=== PATIENT | female | born 1975 | race Caucasian/White ===

== ENCOUNTER 2017-12-05 13:56 | Emergency (ER) | payer OTHER ==
[~2017-12-05] VITALS: Ht 167.6 cm; Wt 79.4 kg
[2017-12-05] MEDS ORDERED: LEVSIN/SL0.125 MG PO (19:05)
[2017-12-05] MEDS ORDERED: ACIDOPHILUS1 EAC1 PO (19:05)
== END 2017-12-05 19:13 | disposition home or self-care (01) ==
LOC: ER 13:56
DX: K29.70 Gastritis, unspecified, without bleeding (principal)